=== PATIENT | male | born 1980 | race Two or more races ===

== ENCOUNTER 2019-05-20 14:01 | Inpatient (IN) | payer MEDICAID | END 2019-05-21 16:30 | disposition home or self-care (01) | LOC: ER 14:01 → TELE 14:02 → TELE-WESTW 17:24 | DX: I21.4 Non-ST elevation (NSTEMI) myocardial infarction (principal); E11.9 Type 2 diabetes mellitus without complications; R07.9 Chest pain, unspecified; I10 Essential (primary) hypertension; E66.3 Overweight; M26.609 Unspecified temporomandibular joint disorder, unspecified side ==

== ENCOUNTER 2020-12-03 14:33 | Emergency (ER) | payer MEDICAID, OTHER ==
[~2020-12-03] VITALS: Ht 165.1 cm; Wt 72.6 kg
[~2020-12-03 14:33] MED LIST: AMOX500T86 PO; ASPI81CH43 PO; ATOR20TA50 PO; CYCL10TA6 PO; GABA-339 PO
[2020-12-03 15:29] VITALS: BP 127/83
[2020-12-03] MEDS ORDERED: methylPREDNISolone SOD SUCC 125 MG/2 ML VL IM ONE (17:45)
[2020-12-03] MEDS ORDERED: KETOROLAC TROMETH 60MG/2ML VIAL IM ONE (17:45)
== END 2020-12-03 18:19 | disposition home or self-care (01) ==
LOC: ER 14:35
DX: M26.621 Arthralgia of right temporomandibular joint (principal); E11.9 Type 2 diabetes mellitus without complications; I10 Essential (primary) hypertension; Z87.891 Personal history of nicotine dependence
CPT/HCPCS: 96372; 99284; J1885; J2930

== ENCOUNTER 2024-01-31 16:51 | Emergency (ER) | payer MEDICAID, OTHER ==
[~2024-01-31] VITALS: Ht 162.6 cm; Wt 81.8 kg
[~2024-01-31 16:51] MED LIST changes: +CYCL-839 PO; -CYCL10TA6 PO
[2024-01-31 18:19] LABS: Hemoglobin 14.4 g/dL (13.5-17.5); Mean Corpuscular Volume 81.4 fL (80.0-100.0); Monocytes # (auto) 0.6 10 ^3/uL (0-1.3); Neutrophils # (auto) 5.9 10 ^3/uL (1.6-8.6)
[2024-01-31 18:21] LABS: Basophils # (auto) 0.1 10 ^3/uL (0-0.2); Basophils % (auto) 0.8 % (0.0-2.0); Eosinophils # (auto) 0.2 10 ^3/uL (0-0.8); Eosinophils % (auto) 1.7 % (0.0-7.0); Hematocrit 43.1 % (41.0-53.0); Lymphocytes # (auto) 2.5 10 ^3/uL (0.4-5.4); Mean Corpuscular Hemoglobin 27.2 pg (28.0-32.0); Mean Corpuscular Hgb Conc. 33.4 g/dL (32.0-36.0); Monocytes % (auto) 6.3 % (0.0-12.0); Neutrophils % (auto) 64.2 % (37.0-80.0); Nucleated Red Blood Cells % 0.1 %; Red Blood Cells 5.29 10^6/uL (4.5-5.90); Red Cell Distribution Width 14.9 % (11.8-14.3); White Blood Cell 9.1 10^3/uL (4.4-10.8)
[2024-01-31 18:29] LABS: Chloride 106 mmol/L (98-107); Potassium 4.1 mmol/L (3.5-5.1); Sodium 137 mmol/L (136-145)
[2024-01-31 18:30] LABS: Anion Gap 6 (5-15); Calcium 9.2 mg/dL (8.7-10.4); Carbon Dioxide 25 mmol/L (20-30)
[2024-01-31 18:35] LABS: BUN/Creatinine Ratio 12.1 (10.0-20.0); Blood Urea Nitrogen 12 mg/dL (9-23); Glucose 100 mg/dL (74-106)
[2024-01-31 18:38] LABS: Albumin 4.5 g/dL (3.2-4.8); Bilirubin, Total 0.5 mg/dL (0.2-1.0); Total Protein 6.8 g/dL (5.7-8.2)
[2024-01-31] MEDS ORDERED: ZOFR4T PO (18:56)
[2024-01-31] MEDS ORDERED: NAPR-1334 PO (18:56)
[2024-01-31 19:03] LABS: Urine Bacteria NONE SEEN /hpf (None Seen); Urine Blood TRACE /uL (Negative); Urine Clarity Clear (Clear); Urine Color Yellow (Yellow); Urine Mucus FEW (None Seen); Urine Protein, UAD Negative (Negative); Urine Specific Gravity 1.022 (1.001-1.035); Urine Urobilinogen Normal (Negative); Urine WBC 1 /hpf (0 - 3)
[2024-01-31 19:06] LABS: Bilirubin, Direct 0.2 mg/dL (<0.3)
[2024-01-31 21:04] VITALS: BP 144/77; PULSE 74; TEMP 97
[2024-01-31] MEDS: ONDANSETRON HCL 4 MG/2 ML VIAL IV ONE (21:08)
[2024-01-31] MEDS: KETOROLAC TROMETH 30 MG/ML 1ML VIAL IV ONE (21:08)
[2024-01-31 21:09] VITALS: RESP 18; O2SAT 95
== END 2024-01-31 21:21 | disposition home or self-care (01) ==
LOC: ER 16:51 → EDBD 16:51 → ER 21:18
DX: R10.9 Unspecified abdominal pain (principal); I10 Essential (primary) hypertension; E11.9 Type 2 diabetes mellitus without complications; Z88.6 Allergy status to analgesic agent; Z87.891 Personal history of nicotine dependence
CPT/HCPCS: 36415; 74176; 80048; 80076; 81001; 83690; 85025; 96374; 96375; 99285; J1885; J2405